=== PATIENT | female | born 1950 | race Caucasian/White ===

== ENCOUNTER 2017-10-06 03:22 | Inpatient (IN) | payer OTHER, MEDICARE ==
[~2017-10-06] VITALS: Ht 162.6 cm; Wt 105.7 kg
[~2017-10-06 03:22] MED LIST: ACCUPRIL40 M1 PO; AMLODIPINE BESY10 M1 PO; FUROSEMIDE20 M1 PO; LAXACIN TABLET1 EACH PO; LOVASTATIN40 M1 PO; MIRALAX17 G1 PO; MORPHINE SULFAT30 M7 PO; MULTIVITAMINS1 EAC9 PO; OXYCODONE HCL10 M2 PO; STOOL SOFTENER100 M3 PO; TYLENOL EXTRA500 M2 PO
--- NOTE | 2017-10-06 13:14 | Admission Core Measures ---
Acute Coronary Syndrome (CM) ACS Core Measures Acute Coronary Syndrome Diagnosis No Congestive Heart Failure (NEW) CHF Core Measures Congestive Heart Failure Diagnosis No Cerebrovascular Accident CVA Core Measures CVA/TIA Diagnosis No Venous Thromboembolism VTE Core Mahesh (View Protocol) VTE Risk Factors Surgery No Mechanical VTE Prophylaxis d/t N/A MechProphylax Ordered No VTE Pharm Prophylaxis d/t NA PharmProphylax ordered Problem List As ranked by this Provider includes Assessment & Plan 1. Unilateral primary osteoarthritis, right hip HOME MEDS Home Med List Acetaminophen (Tylenol Extra Strength) 500 MG TABLET 1 TAB PO TID PAIN CONTROL (Reported) Amlodipine Besylate 10 MG TABLET 1 TAB PO DAILY BP (Reported) Docusate Sodium (Stool Softener) 100 MG CAPSULE 1 PO BID CONSTIPATION ( Reported) Furosemide 20 MG TABLET 1 TAB PO DAILY WATER (Reported) Lovastatin 40 MG TABLET 1 TAB PO DAILY BP (Reported) Morphine Sulfate 30 MG TABLET 1 TAB PO BIDP PRN PAIN (Reported) Multiple Vitamin (Multivitamins) 1 EACH TABLET 1 TAB PO DAILY SUPP (Reported) Oxycodone HCl 10 MG TABLET 2 TAB PO BID PAIN (Reported) Polyethylene Glycol 3350 (Miralax) 17 GRAM POWD.PACK 1 PAC PO DAILY CONSTIPATION (Reported) Quinapril HCl (Accupril) 40 MG TABLET 1 TAB PO DAILY BP (Reported) Sennosides/Docusate Sodium (Laxacin Tablet) 8.6 MG-50 MG TABLET 1 PO BID CONSTIPATION (Reported)
[2017-10-06] MEDS ORDERED: PRILOSEC OTC20 M1 PO (13:16)
[2017-10-06] MEDS ORDERED: ASPIRIN EC325 M2 PO (13:16)
[2017-10-06] MEDS ORDERED: DILAUDID2 M1 PO (13:16)
--- NOTE | 2017-10-06 13:22 | Patient Discharge Instructions ---
Discharge Instructions General Discharge Information You were seen/treated for: Right hip pain related to unilateral primary osteoarthritis You had these procedures: Right total hip replacement Watch for these problems: Increasing pain despite the use of pain medication Increasing redness, warmth or swelling Drainage of any type from incision Inability to bear weight on operative leg Persistent nausea and vomiting Fever greater than 101.5 degrees Do not soak the wound: Yes No bath, but you may shower: Yes Other wound care: Please keep wound clean and dry. No ointments or lotions of any type on or near incision at any time. No exceptions. Your dressing will be changed by your nurse on the second day after your surgery. Daily dry dressing changes are recommended each day thereafter. Do not soak your wound in a bath or pool at any time until otherwise indicated by your surgeon. You may shower, please dry wound immediately after shower with a clean towel. Special Instructions: Aspirin: You are taking this medication to help prevent blood clot formation. Please take with food to protect your stomach lining. Please take as directed. Constipation: Pain medication can cause constipation. Your surgeon has recommended that you take Colace and miralax each day. You may discontinue this medication if you develop loose stool or diarrhea. If you wish to continue this medication, it is available over the counter. If you are unable to move your bowels after several days, if you are unable to pass gas and are developing bloating, nausea, or vomiting as a result, please contact your doctor. Diet Continue normal diet: Yes Recommended Diet: Regular Activity Full Activity/No Limits: No Activity Self Limited: Yes Pounds, do NOT lift more than: 10 Acute Coronary Syndrome Inclusion Criteria At DC or during hospital stay patient has or had the following: ACS DIAGNOSIS No Discharge Core Measures Meds if any: Prescribed or Continued at Discharge Meds if any: NOT Prescribed or Continued at Discharge Congestive Heart Failure Inclusion Criteria At DC or during hospital stay patient has or had the following: CHF DIAGNOSIS No Discharge Core Measures Meds if any: Prescribed or Continued at Discharge Meds if any: NOT Prescribed or Continued at Discharge Cerebrovascular accident Inclusion Criteria At DC or during hospital stay patient has or had the following: CVA/TIA Diagnosis No Discharge Core Measures Meds if any: Prescribed or Continued at Discharge Meds if any: NOT Prescribed or Continued at Discharge Venous thromboembolism Inclusion Criteria VTE Diagnosis No VTE Type NONE VTE Confirmed by (Test) NONE Discharge Core Measures - Per Current guidelines, there needs to be overlap - treatment for the first 5 days of Warfarin therapy. - If discharged on Warfarin prior to 5 days of - overlap therapy, the patient will need to be - assessed for post discharge needs including - *Post discharge parental anticoagulation - *Warfarin and/or parental anticoagulation education - *Follow up date to check INR post discharge At least 5 days overlap therapy as Inpatient No Meds if any: Prescribed or Continued at Discharge Note: Overlap Therapy is Warfarin and Anticoagulant Meds if any: NOT Prescribed or Continued at Discharge
--- NOTE | 2017-10-06 13:24 | Surgical Discharge Summary ---
Visit Information Visit Dates Admission Date: 10/06/17 Discharge Date: 10/07/17 History of Present Illness Chief Complaint: Right hip pain related to unilateral primary osteoarthritis Surgical History Pertinent Surgical History: non-contributory Review of Systems: See H&P Hospital Course Course Attending Physician: Junior Nash MD Primary Care Physician: Unknown Hospital Course: Patient was admitted to the hospital for an elective total joint replacement. The procedure was tolerated well and patient was transferred to a general surgical floor. Diet was advanced and tolerated. The patient was evaluated and treated by physical therapy. At the time of hospital discharge, the vital signs were stable, neurovascular status was intact, and pain was controlled with the use of oral pain medications. Allergies: Coded Allergies: No Known Allergies (10/05/17) PER PRE-OP ORDER SHEET FROM [facility]. - 10/05/17 Disposition Summary Disposition Principal Diagnosis: Right hip unilateral primary osteoarthritis Additional Diagnosis: None Discharge Disposition: home health services Discharge Instructions General Discharge Information Code Status: Full Code Patient's Diet: Regular, advance as tolerated Patient's Activity: WBAT Follow-Up Instructions/Appts: Follow up with Dr. Nash in 6 weeks from date of surgery. Please call office to arrange &/or confirm this appointment. Medications at Discharge Discharge Medications: Stop taking the following medications: Oxycodone HCl (Oxycodone HCl) 10 MG TABLET ORAL TWICE DAILY Morphine Sulfate (Morphine Sulfate) 30 MG TABLET ORAL 2 x Daily as needed as needed for PAIN Continue taking these medications: Polyethylene Glycol 3350 (Miralax) 17 GRAM POWD.PACK 1 Packet ORAL DAILY Instructions: dissolve in water Comments: Last Taken: 10/07/17 Time: 930 AM Sennosides/Docusate Sodium (Laxacin Tablet) 8.6 MG-50 MG TABLET 1 ORAL TWICE DAILY Comments: NOT GIVEN IN HOSPITAL Docusate Sodium (Stool Softener) 100 MG CAPSULE 1 ORAL TWICE DAILY Comments: Last Taken: 10/07/17 Time: 930 AM Lovastatin (Lovastatin) 40 MG TABLET 1 Tablet ORAL DAILY Instructions: with food Comments: NOT GIVEN IN HOSPITAL Furosemide (Furosemide) 20 MG TABLET 1 Tablet ORAL DAILY Comments: Last Taken: 10/07/17 Time: 930 AM Multiple Vitamin (Multivitamins) 1 EACH TABLET 1 Tablet ORAL DAILY Comments: NOT GIVEN IN HOSPITAL Quinapril HCl (Accupril) 40 MG TABLET 1 Tablet ORAL DAILY Comments: NOT GIVEN, LISINOPRIL GIVEN IN HOSPITAL 10/07/17 Time: 930 AM Amlodipine Besylate (Amlodipine Besylate) 10 MG TABLET 1 Tablet ORAL DAILY Comments: Last Taken: 10/07/17 Time: 930 AM Acetaminophen (Tylenol Extra Strength) 500 MG TABLET 1 Tablet ORAL THREE TIMES DAILY Comments: Last Taken: 10/07/17, IV TYLENOL GIVEN Time: 600 AM Start taking the following new medications: Hydromorphone HCl (Dilaudid) 2 MG TABLET 1-2 Tablet ORAL EVERY 4-6 HOURS NEEDED as needed for PAIN Qty = 36 No Refills Comments: Last Taken: 10/07/17 Time: 0930 Aspirin (Ecotrin*) 325 MG TABLET.DR 1 Tablet ORAL TWICE DAILY Qty = 60 No Refills Comments: Last Taken: 10/07/17 Time: 0930 Omeprazole Magnesium (Prilosec Otc) 20 MG TABLET.DR 2 Tablet ORAL DAILY Qty = 60 No Refills Comments: Last Taken: 10/07/17 Time: 600 AM
--- NOTE | 2017-10-06 15:12 | RADIOLOGY REPORT ---
EXAMINATION: XR HIP, RIGHT CLINICAL INFORMATION: Status post hip replacement in PACU. COMPARISON: None. TECHNIQUE: Two views of the right hip. FINDINGS: A total hip prosthesis is in place on the right. A surgical drain appears to be overlying the hip. The prosthesis appears in good position and no fractures or dislocations are seen. IMPRESSION: Normal postoperative appearances.
--- NOTE | 2017-10-06 16:24 | Operative Report ---
Operative/Inv Procedure Report Surgery Date: 10/06/17 Name of Procedure: Right total hip replacement Pre-Operative Diagnosis: Primary right hip DJD Post-Operative Diagnosis: Same Estimated Blood Loss: 400 Surgeon/Auxiliary Operator: Charity ROCHA,Junior Campoverde Anesthesia: block Operative/Procedure Note Note: Description of Procedure: The patient was taken to the operating room and positively identified. After induction of spinal anesthesia and administration of appropriate pre-operative antibiotics, the patient was positioned supine on the operating room table and all bony prominences were well padded. After performing a surgical timeout, the right lower extremity was prepped and draped in the usual sterile fashion. A direct anterior approach was made to the right hip. The incision was carried sharply through superficial soft tissues to the level of the fascia. Meticulous hemostasis was maintained with Bovie electocautery. The fascia over the tensor fascia yana muscle was opened sharply and the interval between the TFL and the sartorius was entered bluntly taking care to stay lateral to the lateral femoral cutaneous nerve. Retractors were placed around the femoral neck and the pericapsular fat was identified. The ascending branches of the lateral femoral circumflex vessels were identified and carefully coagulated. The pericapsular fat and anterior capsule were then resected. A napkin ring osteotomy was performed and the femoral head was removed without difficulty. Attention was then turned to the acetabulum. After appropriate placement of retractors, the acetabulum was exposed. Soft tissue was cleaned from the acetabular margin and notch. Overhanging osteophytes were removed and the teardrop was exposed. The acetabulum was then sequentially reamed to accept a 52 mm Jennifer Tritanium hemispherical solid shell. This was impacted into place in the appropriate position and fitted with a 32 mm Trident X3 zero degree polyethylene insert. Attention was then turned to the femur. After performing the appropriate ligament releases, the proximal femur was exposed. It was then sequentially broached to accept a size 5 Jennifer Accolade 2 stem. This was trialed for leg length and stability. The trial component was removed and the final component was impacted into place. The trunnion was carefully cleaned and fit with a 32 mm, -4 Biolox delta ceramic femoral head. The hip was reduced and put through a full range of motion and found to be stable. The articular space was then irrigated with sterile saline. The periarticular soft tissues were infilitrated with Marcaine. The fascial layer was closed with interrupted #1 vicryl suture and the skin was re-approximated with interrupted 2 -0 vicryl. The skin was closed with a running 3-0 V-Lock suture. Steri-strips and a sterile dressing were applied. The patient was awakened and taken to the recovery room in satisfactory condition.
[2017-10-06 18:00] VITALS: BP 119/60
[2017-10-06 20:00] VITALS: BP 120/60
[2017-10-06 21:52] VITALS: BP 122/60
--- NOTE | 2017-10-06 23:07 | PN- Orthopedic ---
Subjective Subjective: poc s/p right anastacio resting comfortably in bed with family present denies cp, sob, no n+v with diet has ambualted with PT has voided Objective Vital Signs and I&Os Vital Signs Date Time Temp Pulse Resp B/P B/P Pulse O2 O2 Flow FiO2 Mean Ox Delivery Rate 10/07 2151 98.6 75 16 122/60 96 Room Air 10/06 2000 98.6 73 16 120/60 95 Room Air 10/06 1800 98.6 73 18 119/60 95 Room Air Physical Exam: cv: rrr lungs: clear abd: soft, +bs ext: drsg dry thigh soft distal cms intact hemovac: minimal sanguinous drainage Assessment/Plan Assessment/Plan ortho stable plan asa bid/alps for dvt prophylaxis oob wabt right le titrate pain meds home d/c planning Core Measures Venous Thromboembolism VTE Risk Factors Surgery No Mechanical VTE Prophylaxis d/t N/A MechProphylax Ordered No VTE Pharm Prophylaxis d/t NA PharmProphylax ordered
[2017-10-07 00:15] VITALS: BP 130/56
[2017-10-07 04:46] VITALS: BP 145/73
[2017-10-07 06:00] VITALS: BP 129/68
--- NOTE | 2017-10-07 07:33 | PN- Orthopedic ---
Subjective Subjective: Doing well, no acute events overnight, pain is fairly well controlled. She is voiding. She has been out of bed without difficulty Objective Vital Signs and I&Os Vital Signs Date Time Temp Pulse Resp B/P B/P Pulse O2 O2 Flow FiO2 Mean Ox Delivery Rate 10/07 0446 98.3 75 20 145/73 98 Room Air 10/07 0015 98.6 54 20 130/56 96 Room Air 10/06 2152 98.6 75 16 122/60 96 Room Air 10/06 2000 98.6 73 16 120/60 95 Room Air 10/06 1800 98.6 73 18 119/60 95 Room Air Intake & Output 10/07 0800 10/07 0000 10/06 1600 10/06 0800 10/06 0000 10/05 1600 Intake Total 1140 1010 Output Total 760 845 Balance 380 165 Intake, IV 900 550 Intake, Oral 240 460 Number 0 Bowel Movements Output, 160 95 Drainage Output, Urine 600 750 Patient 233 lb Weight Weight Reported by Patient Measurement Method Physical Exam: Well-developed well-nourished no apparent distress. HEENT: Atraumatic, extraocular motion intact Neck: Supple, no lymphadenopathy Respiratory: No respiratory distress Extremities: No edema RIGHT lower extremity hip dressing in place, Dressing clean dry and intact Hemovac drain in place, this was removed, 160 cc overnight of bloody drainage Mild thigh swelling No signs of infection. No shortening or rotation Hip range of motion is limited and without unexpected pain Able to straight leg raise Neurovascularly intact distally Bilateral calves are supple, nontender. Neuro: Alert and oriented x3 Psych: Mood affect normal, normal memory normal judgment. Skin: Warm and dry, no rash on exposed skin Results Last 48 Hours of Labs: Laboratory Tests 10/08 627 Chemistry Sodium Pending Potassium Pending Chloride Pending Carbon Dioxide Pending Anion Gap Pending BUN Pending Creatinine Pending BUN/Creatinine Ratio Pending Hematology CBC w Diff Pending WBC Pending RBC Pending Hgb Pending Hct Pending MCV Pending MCH Pending MCHC Pending RDW Pending Plt Count Pending MPV Pending Assessment/Plan Assessment/Plan Postop day #1 status post right total hip arthroplasty anterior approach Perioperative antibiotics completed. Pain medication as needed. We will add patient's usual chronic pain medication home dose of MS Contin 30 mg p.o. twice daily. Discussed with patient that she should taper this dose after 1 week as she was taking it largely for arthritic pain. She should follow-up with her primary care doctor who prescribes medication for tapering schedule Out of bed Physical therapy, weightbearing as tolerated DC IV fluids Hemovac drain removed without difficulty Regular diet Follow a.m. labs Aspirin for DVT prophylaxis ALPS for DVT prophylaxis Regular home meds Dressing change postop day 2 Plan for discharge to home today if labs acceptable and clears physical therapy. Discussed with patient who understands and agrees with plan Core Measures Venous Thromboembolism VTE Risk Factors Surgery No Mechanical VTE Prophylaxis d/t N/A MechProphylax Ordered No VTE Pharm Prophylaxis d/t NA PharmProphylax ordered
[2017-10-07 08:39] LABS: ABSOLUTE BASOPHIL COUNT 0 /CUMM (0.0-0.2); ABSOLUTE EOSINOPHIL COUNT 0 /CUMM (0.0-0.7); ABSOLUTE LYMPH COUNT 0.9 /CUMM (1.2-3.4); ABSOLUTE MONOCYTE COUNT 0.6 /CUMM (0.10-0.60); BASOPHIL % 0.2 % (0.0-2.0); EOSINOPHIL % 0.2 % (0-5); GRANULOCYTE % 81.9 % (42.2-75.2); HEMATOCRIT 33.7 % (37-47); MEAN CORPUSCULAR HGB CONC 33.2 G/DL (33.0-37.0); MEAN CORPUSCULAR VOLUME 93.5 FL (81.0-99.0); MEAN PLATELET VOLUME 10.6 FL (7.4-10.4); PLATELET COUNT 149 /CUMM (130-400); RBC DISTRIBUTION WIDTH 13.7 % (11.5-14.5); WHITE BLOOD CELL COUNT 8.6 /CUMM (4.8-10.8)
[2017-10-07 12:58] VITALS: BP 128/70
== END 2017-10-07 13:00 | disposition home health service (06) | DRG 470 ==
LOC: 2NB 03:22 → SDA 03:22 → ENRESERV 15:20 → CANRESERV 15:20 → ENRESERV 15:51 → ENTRNSPT 16:29 → EDTRNSPT 16:43 → EDTRNSPTSTS 16:43 → 2NB 16:45 → CMPTRNSPT 16:54 → ENPENDDIS 10-07 10:42 → ENTRNSPT 10-07 12:46 → EDTRNSPTSTS 10-07 12:57 → EDTRNSPT 10-07 12:57 → 2NB 10-07 13:00 → CMPTRNSPT 10-07 13:20
PROVIDERS: Nurse Practitioner
PROC: 0SR904A Replacement of Right Hip Joint with Ceramic on Polyethylene Synthetic Substitute, Uncemented, Open Approach (ICD-10-PCS; principal; 2017-10-06)
DX: M16.11 Unilateral primary osteoarthritis, right hip (principal); Z68.41 Body mass index [BMI] 40.0-44.9, adult; I12.9 Hypertensive chronic kidney disease with stage 1 through stage 4 chronic kidney disease, or unspecified chronic kidney disease; E11.22 Type 2 diabetes mellitus with diabetic chronic kidney disease; N18.3 Chronic kidney disease, stage 3 (moderate); Z79.84 Long term (current) use of oral hypoglycemic drugs; E78.5 Hyperlipidemia, unspecified; E66.9 Obesity, unspecified; Z90.49 Acquired absence of other specified parts of digestive tract
CPT/HCPCS: 2NBP; 36592; 73502-RT; 82436; 88304; 97116-GO; 97161-GP; 97530-GO; J0131; J0690; J0735; J1100; J2405; J2550; J7042